=== PATIENT | male | born 1950 | race Caucasian/White ===

== ENCOUNTER 2020-01-07 16:47 | Inpatient (IN) | payer MEDICARE, OTHER ==
[~2020-01-07] VITALS: Ht 177.8 cm; Wt 83.5 kg
[2020-01-07] MEDS ORDERED: MAG HYDROX/AL HYDROX/SIMETH 30 ML UDC PO PRN (21:00)
[2020-01-07] MEDS ORDERED: BLOOD SUGAR DIAGNOSTIC 1 EACH STRIP IN ONE (21:00)
[2020-01-07] MEDS ORDERED: TEMAZEPAM 7.5 MG CAPSULE PO PRN (21:00)
[2020-01-07] MEDS ORDERED: LORAZEPAM 0.5 MG TABLET PO PRN (21:00)
[2020-01-07] MEDS ORDERED: MAGNESIUM HYDROXIDE 30 ML UDC PO PRN (21:00)
[2020-01-07] MEDS ORDERED: ACETAMINOPHEN 325 MG TABLET PO PRN (21:00)
[2020-01-07 21:28] VITALS: BP 153/88
[2020-01-07] MEDS ORDERED: PRIMIDONE (22:53)
[2020-01-07] MEDS ORDERED: METO25TA4 PO (22:53)
--- NOTE | 2020-01-07 22:58 | NUR ---
RECEIVED A 69 Y/O MALE WHO ARRIVED ON THE UNIT @ 1999. PT WAS BROUGHT BY A TRANSPORTER. PT ADMITTED ON 5150 HOLD PLACED ON 01/06/2020 @ 1715 FOR GD. PER HOLD PATIENT PRESENTS TO [facility] IN COMPANY OF A FRIEND D/T PARANOIA, DELUSIONS, NON COMPLIANT WITH MEDS, DISORIENTATION AND CONFUSION. PT ALSO APPEARS SAD, LABILE, TEARFUL, CONFUSED AND HAS NO CAREGIVER. UPON FACE TO FACE PT IS A/O X2, APPEARS DEPRESSED, FLAT AFFECT, PASSIVE, CALM AND COOPERATIVE, CONFUSED AND DISORGANIZED THOUGHTS. DENIES SI AT THIS TIME. THE 5150 WAS REVIEWED AND DOCUMENTED. PT IS DISPLAYING NO S/S OF DISTRESS AT THIS TIME, PT BREATHING IS EVEN AND UNLABORED WITH EQUAL RISE AND FALL OF THE CHEST ON ROOM AIR. PT IS REQUESTING NONDISCLOSURE OF HIS INFORMATION STATING, "I DON'T WANT YOU TO CALL ANYONE". PT SKIN ASSESSMENT DONE, MRSA DONE, BS 81MG/DL. PT REFUSED TO SIGN ADMISSION PAPERS PER PT "I'M TIRED". PT WAS OFFERED FLU AND PNEUMONIA SHOTS BUT REFUSED. PT WILL BE UNDER THE CARE OF PSYCHIATRIST DR. GRIMES AND MEDICAL DR. GALICIA. BOTH DRS HAVE BEEN NOTIFIED. MD FELTON CALLED FOR MED RECON. PT ORIENTED TO UNIT, FLOOR AND STAFF. MEDICATION RECONCILIATION DONE. PT RIGHTS BOOKLET GIVEN TO THE PT ALONG WITH ADVISEMENT. PT OFFERED FLUID AND SNACKS TOLERATED. ALL PT NEEDS MET AT THIS TIME. WILL CONTINUE TO MONITOR Q15MIN FOR SAFETY AND BEHAVIOR.
[2020-01-07 23:40] VITALS: BP 153/88
--- NOTE | 2020-01-08 06:36 | NUR ---
GPS RN CLOSING NOTE: PT IS CURRENTLY LAYING ON BED SLEEPING. SLEPT 6HR THIS SHIFT. NO S/S OF DISTRESS. NO BEHAVIORAL ISSUES THIS SHIFT. RESPIRATION EVEN AND UNLABORED WITH EQUAL RISE AND FALL OF THE CHEST ON ROOM AIR. ALL PT CARE NEEDS MET ANTICIPATED. BED IS LOCKED AND IN LOWEST POSITION, CALL SNYDER WITHIN REACH. WILL CONTINUE TO MONITOR AND ENDORSE TO AM SHIFT.
[2020-01-08 07:24] LABS: ALBUMIN 3.3 g/dL (3.4-5.0); BILIRUBIN,TOTAL 0.4 mg/dL (0.2-1.0); CALCIUM, SERUM 9.3 mg/dL (8.5-10.1); CREATININE 0.8 mg/dL (0.6-1.3); POTASSIUM 4.6 mmol/L (3.5-5.1)
[2020-01-08 08:00] VITALS: BP 139/83
[2020-01-08 08:44] LABS: CHOLESTEROL 174 mg/dL (<200); HDL CHOLESTEROL 40 mg/dL (40-60); LDL 117 mg/dL (0-99); TRIGLYCERIDES 85 mg/dL (30-150)
[2020-01-08] MEDS ORDERED: PHEN-563 PO (09:00)
[2020-01-08] MEDS ORDERED: METOPROLOL SUCCINATE 25 MG TAB.SR.24H PO SCH (09:00)
[2020-01-08] MEDS ORDERED: LATA2.5D7 LEFTEYE (09:00)
[2020-01-08] MEDS ORDERED: CARB200T PO (09:00)
[2020-01-08] MEDS ORDERED: PHEN97.22 PO ×2 (09:38→14:23)
--- NOTE | 2020-01-08 09:45 | NUR ---
RN NOTES RECEIVED A CALL FROM [facility] AUTHOR OF DARCY ARMENTA TO CLARIFY PATIENTS MEDICATION, CHACHA SAID PER RECORD PATIENT IS TAKING CARBAMAZEPINE 200 MG TABLET 3 TABLETS TID AND PHENOBARBITAL 97.2 MG TABLET 0.5 TABLET IN AM AND 1 TABLET AT BEDTIME, MEDICATIONS READ BACK AND CLARIFIED.
--- NOTE | 2020-01-08 11:05 | NUR ---
Family Contact: SW called the pts daughter, Jacqueline ([phone]), who stated that she is not involved in his care and provided the SW with the pts sister in law's contact information.
--- NOTE | 2020-01-08 11:11 | NUR ---
Initial Discharge Plan: Pt currently resides at his home alone located at [address] [place] [address]; ([phone]). Per pt, he would like to return to his home. SW will work with the pt and the MD regarding appropriate discharge planning. SW will form a safe and proper discharge.
--- NOTE | 2020-01-08 11:12 | NUR ---
Sister in Law Contact: SW called the pts sister in law, Angus ([phone]), and the mailbox was full. KENTRELL will try again later.
--- NOTE | 2020-01-08 12:32 | NUR ---
RN NOTES RECEIVED NEW ORDER FROM DISTRIBUTION LEAD PENNIE CUNNINGHAM COVERING DR CRISTOFER WOODWARD FOR CARBAMAZEPINE AND PHENOBARBITAL LEVEL , ORDER CLARIFIED AND READ BACK WITH PRACHI CASPER , NOTED AND CARRIED OUT.
[2020-01-08 12:52] LABS: CARBAMAZEPINE (TEGRETOL) 0.1 ug/ml (4-11.9)
[2020-01-08 16:00] VITALS: BP 148/85
[2020-01-08] MEDS: CARBAMAZEPINE 200 MG TABLET PO SCH ×2 (16:30→23:00)
--- NOTE | 2020-01-08 17:09 | NUR ---
RN NOTES PATIENT REFUSED TEGRETOL DESPITE OF EXPLANATION OF RISKS AND BENEFITS. HE SAID HE WANTS TO TAKE HIS BEDTIME MEDICATION.
[2020-01-08 20:54] VITALS: BP 147/76
[2020-01-08] MEDS ORDERED: risperiDONE 1 MG TABLET PO SCH (21:00)
[2020-01-08] MEDS ORDERED: RIVASTIGMINE TARTRATE 1.5 MG CAPSULE PO SCH (21:00)
[2020-01-08] MEDS ORDERED: LATANOPROST EYE DROP 0.005% 2.5 ML BOTTLE LEFTEYE SCH (22:00)
[2020-01-08] MEDS ORDERED: PHENOBARBITAL 30 MG TABLET PO SCH (22:00)
--- NOTE | 2020-01-08 23:19 | NUR ---
GPS RN NOTES: REFUSED TEGRETOL PT REFUSED TEGRETOL ORDERED. PT STATED, "I DONT USUALLY TAKE THAT. ILL ASK MY DR IN THE MORNING" EXPLAIN RISKS AND BENEFITS. PT STILL REFUSED X3. CONTINUE THE PLAN OF CARE
[2020-01-09 03:16] VITALS: BP 164/107
[2020-01-09] MEDS ORDERED: LORAZEPAM INJ 2 MG/ML VIAL IV PRN (04:00)
--- NOTE | 2020-01-09 04:20 | NUR ---
GPS RN NOTES: 0326 X RAY EQUIPMENT TESTER NOTIFIED RN PT YELLING AND SHAKING IN HIS BED. UPON ASSESSMENT PT HAVING JERK LIKE MOVEMENTS LAYING IN BED. PT AWAKE AND DISORGANIZED. PLACED PT TO THE SIDE, CLEARED THE AREA FOR ANYTHING THAT MAY INJURE THE PT, OPEN HIS AIRWAY FOR ANY RESTRICTIONS, ELEVATED THE HOB, CALLED FOR RAPID RESPONSE TEAM, PLACED PT ON OXYGEN 7 LITERS NON REBREATHER MASK, VITALS CHECKED 164/107 PULSE 100 98% O2 RESP 20, AND BLOOD SUGAR AT 100. 0328 PT JERK LIKE MOVEMENT/ AND SHAKING STOPPED. SEIZURE LASTED FOR 2 MIN. BREATHING EVEN AND UNLABORED. NO SOB. NO RESP DISTRESS. PT ASLEEP. O2 ROOM AIR 100% 0330 RAPID RESPONSE TEAM CAME AND ASSESSED PT. IV LINE INSERTED ON PTS LEFT FOREARM. PAGED PRACHI MORRIS AT 0342 REGARDING PTS CONDITION. PRACHI MORRIS CALLED BACK AT 0344. WITH ORDERS TO TRANSFER PT TO TELEMETRY UNIT MEDICAL FLOOR FOR MONITORING PT FOR BREAK THROUGH SEIZURE, PLACE PT ON SOFT RESTRAINTS DUE TO PT PULLING OUT IV, ATIVAN IV 2MG Q4 PRN NEEDED, 250 NS BOLUS X1, AND CONTINUE ALL PREVIOUS MEDICATION. CONTINUE 5150 HOLD AND PSYCH MEDS. NOTIFIED CHILD PROTECTIVE INVESTIGATOR KURTIS FOR ROOM TRANSFER AND ROOM NUMBER. PT WILL BE IN 3[facility] TELE ROOM 309 BED A. GAVE REPORT TO ASHANTI KAPOOR. 0350 PT AWAKE AND ALERT. INFORMED PT HIS TRANSFER TO THE MEDICAL FLOOR. PT AGREED AND CURRENTLY CALM AND COOPERATIVE. NO SOB. BREATHING EVEN AND UNLABORED. NO PAIN AT THIS TIME. 0354 TRANSFERED PT TO ROOM 309BED A. GAVE HOLD TO ASHANTI KAPOOR, PAPER WORK, AND BELONGINGS.
[2020-01-09] MEDS ORDERED: PHENOBARBITAL 30 MG TABLET PO SCH (09:00)
[2020-01-09] MEDS ORDERED: PHEN97.22 PO ×2 (16:54)
[2020-01-09] MEDS ORDERED: CARB200T PO (16:54)
== END 2020-01-09 04:05 | disposition home or self-care (01) | DRG 885 ==
LOC: GPS 19:14
PROVIDERS: ADMIT Psychiatry & Neurology Psychiatry; ATTEND Internal Medicine
DX: F29 Unspecified psychosis not due to a substance or known physiological condition (principal); E43 Unspecified severe protein-calorie malnutrition; F23 Brief psychotic disorder; F41.9 Anxiety disorder, unspecified; F03.90 Unspecified dementia, unspecified severity, without behavioral disturbance, psychotic disturbance, mood disturbance, and anxiety; F32.9 Major depressive disorder, single episode, unspecified; Z73.6 Limitation of activities due to disability; M62.81 Muscle weakness (generalized); E88.09 Other disorders of plasma-protein metabolism, not elsewhere classified; Z68.26 Body mass index [BMI] 26.0-26.9, adult
CPT/HCPCS: 36415; 80053-TC; 80061-TC; 80156-TC; 80184; 82962-TC; 87081-TC; J7030

== ENCOUNTER 2020-01-09 04:34 | Inpatient (IN) | payer MEDICARE, OTHER ==
[~2020-01-09] VITALS: Ht 177.8 cm; Wt 83.0 kg
[2020-01-09 04:07] VITALS: BP 136/89
[2020-01-09 04:10] VITALS: BP 136/86
--- NOTE | 2020-01-09 04:10 | NUR ---
LIDDING MACHINE OPERATORSPECIAL EDUCATION SECRETARY NOTE RECEIVED PATIENT VIA GURNEY. TRANSFERRED TO BED. A/OX2, TO NAME AND . TOLERATING ROOM AIR. RESPIRATIONS ARE EVEN AND UNLABORED. NO S/S SOB NOTED. NO C/O PAIN AT THIS TIME. EXTERNAL TELE MONITOR READS SINUS TACHY CARDIA HR 122. IN NO APPARENT DISTRESS. IV ACCESS IN LFA#20 PATENT AND SALINE LOCKED. INITIAL PHYSICAL ASSESSMENT COMPLETED AT THIS TIME. SKIN ASSESSMENT COMPLETED, SKIN INTACT. SEIZURE PRECAUTIONS APPLIED. BED IS LOW AND LOCKED, HOB ELEVATED IN SEMI FOWLERS, SIDE RIALS UP X3. CALL LIGHT WITHIN REACH. AWAITING GPS SITTER FOR PATIENT D/T ON 9210 HOLD FOR GRAVELY DISABLED DONE 01/09/20 4447. WILL CONTINUE TO MONITOR.
[~2020-01-09 04:34] MED LIST: CARB200T PO; LATA2.5D15 LEFTEYE; METO25TA4 PO; PHEN97.22 PO; PRIMIDONE
[2020-01-09] MEDS ORDERED: LORAZEPAM INJ 2 MG/ML VIAL IV PRN (05:00)
[2020-01-09] MEDS ORDERED: MAGNESIUM HYDROXIDE 30 ML UDC PO PRN (05:00)
[2020-01-09] MEDS ORDERED: ONDANSETRON HCL/PF 4 MG/2 ML VIAL IVP PRN (05:00)
[2020-01-09] MEDS ORDERED: HYDROCODONE/APAP 5/325MG TABLET PO PRN (05:00)
[2020-01-09] MEDS ORDERED: ACETAMINOPHEN 325 MG TABLET PO PRN (05:00)
[2020-01-09] MEDS ORDERED: MAG HYDROX/AL HYDROX/SIMETH 30 ML UDC PO PRN (05:00)
[2020-01-09 05:08] LABS: BASOPHILS % (AUTO) 0.3 % (0.0-2.0); EOSINOPHILS % (AUTO) 3.1 % (0.0-6.0); HEMATOCRIT 41 % (39-51); HEMOGLOBIN 13.8 g/dL (13.5-17.5); LYMPHOCYTES # (AUTO) 1.2 /CMM (0.8-4.8); LYMPHOCYTES % (AUTO) 16.1 % (20.0-44.0); MEAN CORPUSCULAR HGB CONC 34 g/dl (31.0-36.0); MEAN CORPUSCULAR VOLUME 94 fL (80-96); MONOCYTES # (AUTO) 0.5 /CMM (0.1-1.30); MONOCYTES % (AUTO) 7.5 % (2.0-12.0); NEUTROPHILS # (AUTO) 5.4 /CMM (1.8-8.9); PLATELET COUNT (AUTO) 242 /CMM (150-450); RED BLOOD CELL COUNT(AUTO) 4.36 MIL/uL (4.5-6.0); WHITE BLOOD COUNT (AUTO) 7.3 K/uL (4.3-11.0)
[2020-01-09 05:17] LABS: CALCIUM, SERUM 8.8 mg/dL (8.5-10.1); CARBON DIOXIDE 28 mmol/L (21-32); CHLORIDE 104 mmol/L (98-107); CREATININE 0.9 mg/dL (0.6-1.3); GLUCOSE 111 mg/dL (74-106); POTASSIUM 3.6 mmol/L (3.5-5.1); SODIUM SERUM 140 mmol/L (136-145); UREA NITROGEN, BLOOD 18 mg/dL (7-18)
--- NOTE | 2020-01-09 05:20 | NUR ---
RETAIL LEADER NOTE CHELSI BURRELL ENDORSED THAT PATIENT NEEDS 250ML BOLUS X1. ORDER NOTED ON DISCHARGE NOTE. CONFORMED WITH DECK WORKER MD DR. ELIZABETH IF PATIENT NEEDS IV BOLUS. TELEPHONE ORDER NO, ORDERED IVF INSTEAD. ORDER READ BACK NOTED AND CARRIED OUT. WILL CONTINUE TO MONITOR.
[2020-01-09 05:25] LABS: PHOSPHORUS 2.1 mg/dL (2.5-4.9)
[2020-01-09 05:26] LABS: ALKALINE PHOSPHATASE 95 U/L (46-116); ASPARTATE AMINOTRANSFERASE 20 U/L (15-37); BILIRUBIN,TOTAL 0.3 mg/dL (0.2-1.0)
[2020-01-09 05:27] LABS: ALANINE AMINOTRANSFERASE 31 U/L (12-78); ALBUMIN 3.4 g/dL (3.4-5.0); MAGNESIUM 2.1 mg/dL (1.8-2.4)
--- NOTE | 2020-01-09 05:38 | NUR ---
CUSTOM BOOKBINDER NOTE RECEIVED CRITICAL RESULT FROM LAB LACTIC ACID 3. REPORTED BY ELIZABETH. INFORMED DR. ELIZABETH, TELEPHONE ORDER TO CONTINUE IVF ORDERED. ORDER READ BACK, NOTED AND CARRIED OUT.
[2020-01-09] MEDS: IV NS 0.9% 1,000 ML IV PRN (05:42)
--- NOTE | 2020-01-09 06:36 | NUR ---
WIRE SETTER CLOSING NOTE PATIENT IS RESTING BED. A/OX2. REMAINS TOLERATING ROOM AIR. NO RESP DISTRESS NOTED. NO C/O PAIN NOTED. EXTERNAL TELE MONITOR READS SINUS RHYTHM HR 65.NO DISTRESS. IV ACCESS MAINTAINED IN LFA#20 RUNNING NS @75ML/HR. SEIZURE PRECAUTIONS IN PLACE. BED REMAINS LOW AND LOCKED, HOB ELEVATED IN SEMI FOWLERS, SIDE RIALS UP X3. CALL LIGHT WITHIN REACH. SITTER AT BED SIDE FOR 5150 HOLD FOR GRAVELY DISABLED DONE AT 01/09/20 1715. WILL ENDORSE TO NEXT SHIFT.
--- NOTE | 2020-01-09 07:15 | NUR ---
RN NOTES RECEIVED PATIENT IN BED RESTING COMFORTABLY IN MODERATE HIGH BACK REST. SITTER AT BEDSIDE. A/OX2. ON RA, TOLERATING WELL. NO SIGNS OF DISTRESS NOTED AT THIS TIME. ON EXTERNAL TELE MONITOR READS SINUS RHYTHM HR 70'S. IV ACCESS ON LFA#20 RUNNING NS @75ML/HR. SEIZURE PRECAUTIONS IN PLACE. BED REMAINS LOW AND LOCKED, PADDED SIDE RIALS UP X3. CALL LIGHT WITHIN REACH. WILL CONTINUE TO MONITOR.
--- NOTE | 2020-01-09 07:25 | NUR ---
RN NOTES KNUCKLE STRAP SEWER REPORTED THAT PATIENT IS HAVING EPISODE OF SEIZURE, PATIENT CHECKED, ATIVAN GIVEN, MD NOTIFIED. WILL CONTINUE TO MONITOR.
[2020-01-09 08:00] VITALS: BP 138/95
--- NOTE | 2020-01-09 08:32 | NUR ---
Initial Discharge Plan: Pt currently resides at his home alone located at [address] [place] [address]; ([phone]). Per pt, he would like to return to his home. SW will work with the pt and the MD regarding appropriate discharge planning. SW will form a safe and proper discharge.
[2020-01-09] MEDS: METOPROLOL SUCCINATE 25 MG TAB.SR.24H PO SCH (09:10)
[2020-01-09] MEDS: CARBAMAZEPINE 200 MG TABLET PO SCH ×2 (09:10→12:38)
--- NOTE | 2020-01-09 09:20 | NUR ---
RN NOTES RECEIVED A CALL FROM THE LAB, LACTIC ACID OF 7.5. MD NOTIFIED WITH NNO. WILL CONTINUE TO MONITOR.
[2020-01-09 09:54] LABS: BILIRUBIN,DIRECT 0.1 mg/dL (0.0-0.2)
[2020-01-09 12:00] VITALS: BP 126/70
[2020-01-09 15:40] LABS: CARBAMAZEPINE (TEGRETOL) 5.2 ug/ml (4-11.9)
[2020-01-09 16:00] VITALS: BP 125/73
[2020-01-09] MEDS ORDERED: PHEN97.22 PO ×2 (16:54)
[2020-01-09] MEDS ORDERED: CARB200T PO (16:54)
[2020-01-09] MEDS ORDERED: K PHOS NEUTRAL 250 MG TABLET PO ONE (17:30)
--- NOTE | 2020-01-09 18:25 | NUR ---
RN NOTES PATIENT IN BED RESTING COMFORTABLY IN MODERATE HIGH BACK REST. SITTER AT BEDSIDE. A/OX2. ON RA, TOLERATING WELL. ON EXTERNAL TELE MONITOR READS SINUS RHYTHM. IV ACCESS ON LFA#20 RUNNING NS @75ML/HR. SEIZURE PRECAUTIONS IN PLACE. BED REMAINS LOW AND LOCKED, PADDED SIDE RIALS UP X3. CALL LIGHT WITHIN REACH. WILL ENDORSE TO REGISTERED NURSE MATERNAL CHILD NURSE FOR WILFRIDO.
[2020-01-09 20:00] VITALS: BP 121/71
--- NOTE | 2020-01-09 20:00 | NUR ---
RN NOTES RECEIVED PT. SLEEPING BT AROUSABLE, SR ON TELE MONITOR HR-65, SITTER AT BEDSIDE, PT. IS CALM AND COOPERATIVE, CALL LIGHT WITHIN REACH, SIDERAILSUPX2, CONTINUE TO MONITOR
[2020-01-09] MEDS: PHENOBARBITAL 30 MG TABLET PO SCH (20:50)
[2020-01-09] MEDS: LATANOPROST EYE DROP 0.005% 2.5 ML BOTTLE LEFTEYE SCH (21:03)
[2020-01-09] MEDS ORDERED: Medication Not On Formulary EA (Phenobarbital 97.2 MG) PO SCH (22:00)
[2020-01-10] VITALS (7 sets, daily range): BP systolic 108–133; BP diastolic 63–81
[2020-01-10 06:01] LABS: BASOPHILS % (AUTO) 0.5 % (0.0-2.0); EOSINOPHILS % (AUTO) 3.5 % (0.0-6.0); HEMATOCRIT 37 % (39-51); HEMOGLOBIN 12.5 g/dL (13.5-17.5); LYMPHOCYTES # (AUTO) 2.2 /CMM (0.8-4.8); LYMPHOCYTES % (AUTO) 27.2 % (20.0-44.0); MEAN CORPUSCULAR HGB CONC 34 g/dl (31.0-36.0); MEAN CORPUSCULAR VOLUME 94 fL (80-96); MONOCYTES # (AUTO) 0.6 /CMM (0.1-1.30); MONOCYTES % (AUTO) 8.1 % (2.0-12.0); NEUTROPHILS # (AUTO) 4.8 /CMM (1.8-8.9); NEUTROPHILS % (AUTO) 60.7 % (43.0-81.0); PLATELET COUNT (AUTO) 226 /CMM (150-450); RED BLOOD CELL COUNT(AUTO) 3.91 MIL/uL (4.5-6.0)
[2020-01-10 06:11] LABS: CALCIUM, SERUM 8.6 mg/dL (8.5-10.1); CREATININE 0.7 mg/dL (0.6-1.3); PHOSPHORUS 3.4 mg/dL (2.5-4.9); POTASSIUM 3.8 mmol/L (3.5-5.1)
--- NOTE | 2020-01-10 06:35 | NUR ---
RN NOTES SLEEPING BUT AROUSABLE, NOT IN DISTRESS, DENIES PAIN, MORNING CARE RENDERED, CALL LIGHT WITHIN REACH, ORIUPX2, PT. NEEDS ATTENDED
--- NOTE | 2020-01-10 08:00 | NUR ---
COPYRIGHT MANAGER AM NOTES PATIENT IN BED RESTING COMFORTABLY IN HIGH BACK REST. WITH 1;1 SITTER AT BEDSIDE. ALERT,AWAKE AND PLEASANT. NO SOB ON RA, TOLERATING WELL. ON TELE MONITOR SINUS RHYTHM. IV ACCESS ON LFA#20 RUNNING NS @75ML/HR INFUSING WELL. WITH SEIZURE PRECAUTIONS IN PLACE. BED REMAINS LOW AND LOCKED, PADDED SIDE RIALS UP X3. CALL LIGHT WITHIN REACH.
[2020-01-10] MEDS: PHENOBARBITAL 30 MG TABLET PO SCH ×2 (09:06→21:57)
[2020-01-10] MEDS: METOPROLOL SUCCINATE 25 MG TAB.SR.24H PO SCH (09:06)
[2020-01-10] MEDS: CARBAMAZEPINE 200 MG TABLET PO SCH (09:07)
[2020-01-10] MEDS: IV NS 0.9% 1,000 ML IV PRN (10:48)
--- NOTE | 2020-01-10 19:39 | NUR ---
PT COMFORTABLY RESTING IN BED WITH 1:1 SITTER AT THE BEDSIDE. NO SEIZURE EPISODE AT THE END OF THE SHIFT.WILL CONTINUE TO MONITOR.
--- NOTE | 2020-01-10 19:58 | NUR ---
RN NOTES RECEIVED PATIENT IN BED RESTING COMFORTABLY IN MODERATE HIGH BACK REST. SITTER AT BEDSIDE. ALERT/ORIENTEDX2. ON RA, TOLERATING WELL. NO SIGNS OF ACUTE RESPIRATORY OR CARDIAC DISTRESS NOTED AT THIS TIME. ON EXTERNAL TELE MONITOR READS SINUS RHYTHM HR 70'S. IV ACCESS ON LFA#20 RUNNING NS @75ML/HR. SEIZURE PRECAUTIONS IN PLACE. ASPIRATION PRECAUTION EMPHASIZED. BED REMAINS LOW AND LOCKED, PADDED SIDE RIALS UP X3. CALL LIGHT WITHIN REACH EASY. ALL NEEDS ANTICIPATED. WILL CONTINUE TO MONITOR ACCORDINGLY.
[2020-01-10] MEDS: LATANOPROST EYE DROP 0.005% 2.5 ML BOTTLE LEFTEYE SCH (22:08)
[2020-01-11] MEDS: IV NS 0.9% 1,000 ML IV PRN (01:53)
[2020-01-11 06:12] LABS: BASOPHILS % (AUTO) 0.7 % (0.0-2.0); EOSINOPHILS % (AUTO) 4.2 % (0.0-6.0); HEMATOCRIT 37 % (39-51); HEMOGLOBIN 12.8 g/dL (13.5-17.5); LYMPHOCYTES # (AUTO) 1.2 /CMM (0.8-4.8); LYMPHOCYTES % (AUTO) 18.8 % (20.0-44.0); MEAN CORPUSCULAR HGB CONC 34 g/dl (31.0-36.0); MEAN CORPUSCULAR VOLUME 95 fL (80-96); MONOCYTES # (AUTO) 0.6 /CMM (0.1-1.30); NEUTROPHILS # (AUTO) 4.3 /CMM (1.8-8.9); NEUTROPHILS % (AUTO) 67.3 % (43.0-81.0); PLATELET COUNT (AUTO) 222 /CMM (150-450); RED BLOOD CELL COUNT(AUTO) 3.93 MIL/uL (4.5-6.0); WHITE BLOOD COUNT (AUTO) 6.4 K/uL (4.3-11.0)
--- NOTE | 2020-01-11 06:22 | NUR ---
RN NOTES ALL NEEDS ATTENDED AND MET. PATIENT IS RESTING COMFORTABLY WITH 1:1 SITTER AT THE BEDSIDE. NO SEIZURE EPISODE THROUGHOUT THE SHIFT. ABLE TO REST AND SLEEP. SAFETY MEASURES IN PLACE, ASPIRATION PRECAUTION EMPHASIZED. WILL ENDORSE TO AM NURSE FOR CONTINUITY OF CARE.
[2020-01-11 06:32] LABS: CALCIUM, SERUM 8.5 mg/dL (8.5-10.1); CREATININE 0.7 mg/dL (0.6-1.3); PHOSPHORUS 3.1 mg/dL (2.5-4.9)
[2020-01-11 08:00] VITALS: BP 131/75
--- NOTE | 2020-01-11 08:00 | NUR ---
ASSISTANT PROFESSOR SCULPTURE AM NOTES PATIENT IN BED RESTING COMFORTABLY IN HIGH BACK REST. WITH 1;1 SITTER AT BEDSIDE. ALERT,AWAKE AND PLEASANT. NO SOB ON RA, TOLERATING WELL. ON TELE MONITOR SINUS RHYTHM. IV ACCESS ON LFA#18 RUNNING NS @75ML/HR INFUSING WELL. WITH SEIZURE PRECAUTIONS IN PLACE. BED REMAINS LOW AND LOCKED, PADDED SIDE RIALS UP X3. CALL LIGHT WITHIN REACH.
[2020-01-11] MEDS: METOPROLOL SUCCINATE 25 MG TAB.SR.24H PO SCH (08:06)
[2020-01-11] MEDS: PHENOBARBITAL 30 MG TABLET PO SCH ×2 (08:06→21:41)
[2020-01-11] MEDS: CARBAMAZEPINE 200 MG TABLET PO SCH (08:06)
[2020-01-11] MEDS ORDERED: PHENOBARBITAL 30 MG TABLET PO ONE (10:00)
[2020-01-11 16:00] VITALS: BP 135/79
--- NOTE | 2020-01-11 18:06 | NUR ---
PT COMFORTABLY RESTING IN BED ALERT AND VERBALLY RESPONSIVE.AMBULATES WITH STANDBY ASSIST. WITH BRP. WITH 1:1 SITTER AT THE BEDSIDE. PT REMAINS COMPLIANT AND COOPERATIVE WITH MEDS AND TX. NO SEIZURE EPISODE AT THE END OF THE SHIFT. PT WILL CONTINUE TO MONITOR.
[2020-01-11 20:00] VITALS: BP 159/92
--- NOTE | 2020-01-11 20:11 | NUR ---
MS/TELE/RN DURING INITIAL SHIFT ROUNDING, PATIENT WAS IN BED AWAKE, ALERT, ORIENTED, COMFORTABLE, NO C/O PAIN, NO DISTRESS NOTED, SITTER AT BEDSIDE, WILL MONITOR.
[2020-01-11] MEDS: LATANOPROST EYE DROP 0.005% 2.5 ML BOTTLE LEFTEYE SCH (21:41)
--- NOTE | 2020-01-11 23:23 | NUR ---
MS/TELE/RN ENDORSED TO NEXT RN FOR CONTINUITY OF CARE.
--- NOTE | 2020-01-11 23:24 | NUR ---
RECEIVED REPORTS FROM NEY BURRELL FOR WILFRIDO. CHECKED PATIENT, CALM AND COMFORTABLE. NO S/S OF DISTRESS NOTED. NO COMPLAIN OF PAIN. WITH THE SITTER AT THE BEDSIDE.
[2020-01-12 01:58] VITALS: BP 157/83
--- NOTE | 2020-01-12 06:17 | NUR ---
MS RN CLOSING NOTES: PATIENT IN BED, AWAKE, NO S/S OF DISTRESS NOTED. NO COMPLAIN OF PAIN. RESTED THROUGHOUT THE NIGHT. WITH SITTER AT THE BEDSIDE. BED IN LOWEST AND LOCKED POSITION. PATIENT IS CALM THROUGHOUT THE NIGHT. PATIENT IS COMFORTABLE.
[2020-01-12 06:41] LABS: BASOPHILS % (AUTO) 0.7 % (0.0-2.0); EOSINOPHILS % (AUTO) 4.6 % (0.0-6.0); HEMATOCRIT 39 % (39-51); HEMOGLOBIN 13.3 g/dL (13.5-17.5); LYMPHOCYTES # (AUTO) 1.7 /CMM (0.8-4.8); LYMPHOCYTES % (AUTO) 26.4 % (20.0-44.0); MEAN CORPUSCULAR HGB CONC 34 g/dl (31.0-36.0); MEAN CORPUSCULAR VOLUME 94 fL (80-96); MONOCYTES # (AUTO) 0.8 /CMM (0.1-1.30); MONOCYTES % (AUTO) 11.6 % (2.0-12.0); NEUTROPHILS # (AUTO) 3.7 /CMM (1.8-8.9); NEUTROPHILS % (AUTO) 56.7 % (43.0-81.0); PLATELET COUNT (AUTO) 243 /CMM (150-450); RED BLOOD CELL COUNT(AUTO) 4.17 MIL/uL (4.5-6.0); WHITE BLOOD COUNT (AUTO) 6.5 K/uL (4.3-11.0)
[2020-01-12 06:59] LABS: CALCIUM, SERUM 8.8 mg/dL (8.5-10.1); CREATININE 0.6 mg/dL (0.6-1.3); POTASSIUM 3.7 mmol/L (3.5-5.1)
--- NOTE | 2020-01-12 08:00 | NUR ---
RN NOTE THE PATIENT IS RECEIVED IN BED. PATIENT IS ALERT AND ORIENTED X2. DENIES PAIN. IN ROOM AIR AND DENIES SOB. RESPIRATION REGULAR AND UNLABORED. THE PATIENT IS IN NO APPARENT DISTRESS. RFA G 22 PATENT AND SALINE LOCKED. SITTER AT THE BEDSIDE. BED LOW AND LOCKED. SIDE RAILS UP X3. WILL CONTINUE TO MONITOR.
[2020-01-12] MEDS: CARBAMAZEPINE 200 MG TABLET PO SCH (08:46)
[2020-01-12] MEDS: PHENOBARBITAL 30 MG TABLET PO SCH ×2 (08:46→21:39)
[2020-01-12] MEDS: METOPROLOL SUCCINATE 25 MG TAB.SR.24H PO SCH (08:47)
--- NOTE | 2020-01-12 13:20 | NUR ---
RN NOTE PATIENT IN STABLE CONDITION. REPORT GIVEN TO ASHANTI RODRIGUEZ.
[2020-01-12 16:00] VITALS: BP 145/80
--- NOTE | 2020-01-12 18:07 | NUR ---
RN MS CLOSING NOTES PATIENT CONTINUES IN STABLE CONDITION. RESTING COMFORTABLY IN BED, ALERT AND ORIENTED X2-3. PT IS ON RA, WITH NO ACUTE RESPIRATORY DISTRESS NOTED, BREATHING EVEN AND UNLABORED. NO S/S OF SOB. NO C/O PAIN. IV TO RFA #22 G KEPT PATENT AND INTACT, KEPT SL. SITTER AT BEDSIDE. SKIN INTACT. BED IS AT LOWEST POSITION AND LOCKED WITH SIDE RAILS UP X2 AND CALL LIGHT WITH IN REACH. WILL ENDORSE TO ONCOMING SHIFT.
--- NOTE | 2020-01-12 19:35 | NUR ---
RN OPENING NOTES PATIENT RECEIVED RESTING IN BED A/O X 3, SITTER AT BEDSIDE. STABLE ON RA WITH BREATHING EVEN AND UNLABORED. NO SIGNS OF ACUTE DISTRESS. NO COMPLAINTS OF PAIN OR DISCOMFORT AT THE MOMENT. IV LOCATED ON RFA #22 SL. SAFETY PRECAUTIONS IN PLACE WITH BED IN LOWEST POSITION, CALL LIGHT WITHIN REACH, BREAKS ON, SIDE RAILS UP. SEIZURES PRECAUTIONS IN PLACE. WILL CONTINUE TO MONITOR THROUGHOUT THE NIGHT.
[2020-01-12 20:00] VITALS: BP 149/80
[2020-01-12] MEDS: LATANOPROST EYE DROP 0.005% 2.5 ML BOTTLE LEFTEYE SCH (21:41)
--- NOTE | 2020-01-12 22:04 | NUR ---
CONTACT ERICKA (SISTER IN LAW) [phone]
[2020-01-13 06:03] LABS: BASOPHILS % (AUTO) 0.4 % (0.0-2.0); EOSINOPHILS % (AUTO) 3.7 % (0.0-6.0); HEMATOCRIT 40 % (39-51); HEMOGLOBIN 13.7 g/dL (13.5-17.5); LYMPHOCYTES # (AUTO) 2.1 /CMM (0.8-4.8); LYMPHOCYTES % (AUTO) 22.5 % (20.0-44.0); MEAN CORPUSCULAR HGB CONC 35 g/dl (31.0-36.0); MEAN CORPUSCULAR VOLUME 93 fL (80-96); MONOCYTES # (AUTO) 0.8 /CMM (0.1-1.30); MONOCYTES % (AUTO) 9.3 % (2.0-12.0); NEUTROPHILS # (AUTO) 5.9 /CMM (1.8-8.9); NEUTROPHILS % (AUTO) 64.1 % (43.0-81.0); PLATELET COUNT (AUTO) 250 /CMM (150-450); RED BLOOD CELL COUNT(AUTO) 4.27 MIL/uL (4.5-6.0); WHITE BLOOD COUNT (AUTO) 9.1 K/uL (4.3-11.0)
[2020-01-13 06:11] LABS: CALCIUM, SERUM 9.1 mg/dL (8.5-10.1); CREATININE 0.7 mg/dL (0.6-1.3); MAGNESIUM 2.2 mg/dL (1.8-2.4); PHOSPHORUS 3.3 mg/dL (2.5-4.9); POTASSIUM 4.2 mmol/L (3.5-5.1)
--- NOTE | 2020-01-13 06:42 | NUR ---
RN CLOSING NOTES PATIENT RESTING IN BED A/O X 3, SITTER AT BEDSIDE. STABLE ON RA WITH BREATHING EVEN AND UNLABORED. NO SIGNS OF ACUTE DISTRESS. NO COMPLAINTS OF PAIN OR DISCOMFORT AT THE MOMENT. IV LOCATED ON RFA #22 SL. SAFETY PRECAUTIONS IN PLACE WITH BED IN LOWEST POSITION, CALL LIGHT WITHIN REACH, BREAKS ON, SIDE RAILS UP. SEIZURES PRECAUTIONS IN PLACE. ALL NEEDS ATTENDED TO. WILL ENDORSE TO ONCOMING SHIFT ABOUT WILFRIDO.
--- NOTE | 2020-01-13 07:38 | NUR ---
MS/RN OPENING NOTE RECEIVED FROM ASSISTANT SCIENTIST NURSE. PATIENT IS STABLE CONDITION. A/O X2-3, VS SIGNS WITH IN NORMAL RANGE. NO ACUTE DISTRESS NOTED. PATIENT IS IN BED ON ROOM AIR TOLERATING WELL. PATIENT HAS R FA #22 HEPLOCK, INTACT AND PATENT. SAFETY MEASURES IN PLACE, BED LOCKED AND IN LOWEST POSITION, BED ALARM ACTIVATED, CALL LIGHT WITHIN REACH, SITTER AT BEDSIDE. WILL CONTINUE TO MONITOR AND ENSURE SAFETY.
[2020-01-13] MEDS: CARBAMAZEPINE 200 MG TABLET PO SCH (08:15)
[2020-01-13 08:18] VITALS: BP 149/79
[2020-01-13] MEDS: METOPROLOL SUCCINATE 25 MG TAB.SR.24H PO SCH (08:18)
[2020-01-13] MEDS ORDERED: PHENOBARBITAL 30 MG TABLET PO SCH ×2 (09:00)
--- NOTE | 2020-01-13 11:43 | NUR ---
MS/RN DISCHARGED PATIENT A/O X3 MEDICALLY STABLE. NO ACUTE DISTRESS NOTED. RESPIRATION EVEN, UNLABORED. DENIES PAIN. IV RFA #22 WAS REMOVED, NO BLEEDING, PRESSURE DRESSING APPLIED. DISCHARGE INSTRUCTION PROVIDED, PATIENT VERBALIZES UNDERSTANDING. PATIENT WAS TAKEN TO [facility] VIA WHEELCHAIR, ACCOMPANIED BY 2 RN AND 1 GENERAL INTERNIST. REPORT GIVEN TO GPS NURSE, CESAR.
[2020-01-14] MEDS ORDERED: ONDA4TAB5 PO (07:36)
[2020-01-14] MEDS ORDERED: ACET-868 PO (07:36)
[2020-01-14] MEDS ORDERED: MAGN400O6 PO (07:36)
[2020-01-14] MEDS ORDERED: MAG30ORA PO (07:36)
[2020-01-14] MEDS ORDERED: LORA2VIA11 IM (07:36)
[2020-01-14] MEDS ORDERED: CARB200T PO (07:36)
[2020-01-14] MEDS ORDERED: HYDR-4384 PO (07:36)
[2020-01-14] MEDS ORDERED: PHEN30TA40 PO (07:36)
== END 2020-01-13 11:30 | DRG 100 ==
LOC: TELE 04:34 → MED 01-11 20:00
PROVIDERS: ADMIT Internal Medicine; ATTEND Internal Medicine
DX: G40.909 Epilepsy, unspecified, not intractable, without status epilepticus (principal); E43 Unspecified severe protein-calorie malnutrition; F23 Brief psychotic disorder; I10 Essential (primary) hypertension; M19.90 Unspecified osteoarthritis, unspecified site; F32.9 Major depressive disorder, single episode, unspecified; F41.9 Anxiety disorder, unspecified; M62.81 Muscle weakness (generalized); Z73.6 Limitation of activities due to disability; F03.90 Unspecified dementia, unspecified severity, without behavioral disturbance, psychotic disturbance, mood disturbance, and anxiety; E88.09 Other disorders of plasma-protein metabolism, not elsewhere classified; Z68.26 Body mass index [BMI] 26.0-26.9, adult; F25.9 Schizoaffective disorder, unspecified; Z91.19 Patient's noncompliance with other medical treatment and regimen
CPT/HCPCS: 36415; 70450-TC; 80048-TC; 80053-TC; 80156-TC; 80184; 82248-TC; 83605-TC; 83735-TC; 84100-TC; 85025-TC; 87086-TC; G0378; J2060; J7030

== ENCOUNTER 2020-01-13 11:08 | Inpatient (IN) | payer MEDICARE, OTHER ==
[2020-01-13] VITALS (7 sets, daily range): BP systolic 124–154; BP diastolic 71–85
[~2020-01-13] VITALS: Ht 177.8 cm; Wt 82.1 kg
--- NOTE | 2020-01-13 11:30 | NUR ---
OBSERVATION ASSISTANT NOTE- PT ADMITTED ON 01/08 FOR 5150 GD. PT SPOUSE ABOUT ONE MONTH BEFORE AND HES BEEN LOSING WEIGHT, PARANOID AND DEPRESSED. UPON ADMISSION, PT HAD SEIZURE AND WAS TRANSFERRED TO MEDICAL FLOOR FOR STABILIZATION. PT FOUND TO HAVE BEEN NON MED COMPLIANT ON TEGRETOL AND PHENOBARBITAL. PT STABILIZED AND RETURNED FROM [facility] TO THE GPS UNIT UNDER THE CARE OF DR GRIMES. EXPLAINED AVAILABLE INFLUENZA AND PNA VACCINES. PT STATED HE DIDN'T WANT THEM. ON FACE TO FACE ASSESSMENT, PT IS ALERT ORIENTED TO PERSON PLACE TIME AND PURPOSE. PT DENIES SI HI AH VH. SKIN INTACT EXCEPT FOR NON PRURITIC ERYTHEMATOUS RASH TO UPPER LEFT BACK AREA, PHOTO TAKEN. MRSA SWAB DONE. PT W PMHX OF SEIZURE DISORDER , BPH, GLAUCOMA LEFT EYE AND PT HAS HAD WEIGHT LOSS SINCE SPOUSE . CURRENTLY 181.2 POUNDS AND 5' 10" TALL. VS- BP- 141/76, HR- 74, RR- 18, T- 98.0, SATURATION 96% RA. ACCU-CHECK DONE. BS- 127. DR ROGERS - TABLE ATTENDANT - FOR DR GRIMES NOTIFIED OF ADMISSION. ADMIT ORDERS GIVEN AND COMPLIED WITH. DR PENNINGTON INFORMED OF ADMIT AND PENDING MED RECON. STATED HE WILL ADDRESS. ORIENTED TOO UNIT. CONTRACTS FOR SAFETY. SISTER IN LAW AWARE OF ADMIT. ENCOURAGED INTERACTION AND MED COMPLIANCE.
[2020-01-13] MEDS ORDERED: BLOOD SUGAR DIAGNOSTIC 1 EACH STRIP IN ONE (12:00)
[2020-01-13] MEDS ORDERED: ACETAMINOPHEN 325 MG TABLET PO PRN (12:00)
[2020-01-13] MEDS ORDERED: MAGNESIUM HYDROXIDE 30 ML UDC PO PRN (12:00)
[2020-01-13] MEDS ORDERED: TEMAZEPAM 7.5 MG CAPSULE PO PRN (12:00)
[2020-01-13] MEDS ORDERED: MAG HYDROX/AL HYDROX/SIMETH 30 ML UDC PO PRN (12:00)
[2020-01-13] MEDS ORDERED: LORAZEPAM 0.5 MG TABLET PO PRN (12:00)
--- NOTE | 2020-01-13 12:19 | NUR ---
RN NOTE: ADMITTING ACCUCHECK 127
[2020-01-13] MEDS ORDERED: TEMAZEPAM 15 MG CAPSULE PO PRN (14:30)
[2020-01-13] MEDS ORDERED: LORAZEPAM 1 MG TABLET PO PRN (14:30)
[2020-01-14] MEDS ORDERED: PHENOBARBITAL 30 MG TABLET PO ONE (07:30)
[2020-01-14] MEDS ORDERED: CARBAMAZEPINE 200 MG TABLET PO ONE (07:30)
[2020-01-14] MEDS ORDERED: HYDR-4384 PO (07:36)
[2020-01-14] MEDS ORDERED: ONDA4TAB5 PO (07:36)
[2020-01-14] MEDS ORDERED: LORA2VIA11 IM (07:36)
[2020-01-14] MEDS ORDERED: ACET-868 PO (07:36)
[2020-01-14] MEDS ORDERED: MAGN400O6 PO (07:36)
[2020-01-14] MEDS ORDERED: PHEN30TA40 PO (07:36)
[2020-01-14] MEDS ORDERED: CARB200T PO (07:36)
[2020-01-14] MEDS ORDERED: MAG30ORA PO (07:36)
[2020-01-14 08:00] VITALS: BP 135/92
[2020-01-14 08:02] LABS: BILIRUBIN,TOTAL 0.3 mg/dL (0.2-1.0); CALCIUM, SERUM 8.9 mg/dL (8.5-10.1); CREATININE 0.8 mg/dL (0.6-1.3); POTASSIUM 4.4 mmol/L (3.5-5.1); TOTAL PROTEIN, SERUM 6.8 g/dL (6.4-8.2)
--- NOTE | 2020-01-14 09:00 | NUR ---
RN NOTED- PT IS QUIET WITHDRAWN AND ISOLATIVE. INTERACTIVE SELECTIVELY, PO INTAKE IS GOOD, MED COMPLIANT. MD NEEDS TO RECONCILE RX. ONE TIME ORDER OBTAINED FROM DR PENNINGTON FOR TEGRETOL 200 MG ONCE AND PHENOBARBITAL 90 MG ONCE.RX GIVEN. NO SEIZURE ACTIVITY NOTED.
--- NOTE | 2020-01-14 09:50 | NUR ---
Psychosocial Note: I, Marcela Plunkett MSW, attest to the patients previous psychosocial information dated on 01/08/20. Update On Events leading to Admission and Discharge Plan: Pt has returned to the geropsych unit of the hospital within a few days of his previous discharge date (01/09/20) to the medical floor of the hospital. Pt was discharged to the Medical Floor due to seizure and then the pt came back to the Geriatric Psychiatric Unit on 01/13/20. Per psychiatric hold, the pt was evaluated by the [facility] Emergency Department to assess the pt who was has presented with increased paranoia and delusions. Pt has not been medication compliant. Pt appeared to be frightened and unoriented upon arrival. Upon face to face contact, adult male presents as labile, sad, tearful, confused, disorganized, and tangential. Adult male is forgetful and unable to recall numerous details. Pt is unable to engage in viable safety plan. Upon social media project manager evaluation, pt appears to be alert and oriented x3 (time, place, and self). Pt appears to be in a euthymic mood and presents with a distressed affect. Pt states that he does not feel like he belongs in the hospital and states that "everything is made up." Pt states that he lives home alone and has been able to take care of himself. Pt states that his appetite and sleeping pattern is fair. Pt states that he has a daughter involved in his care but he states that her involvement is unwanted and has caused problems for him. Pt appears to have impaired insight and judgment and pts impulse control is poor. Pt will be discharged back to his home.
--- NOTE | 2020-01-14 10:04 | NUR ---
WOUND CARE CONSULT: PT PRESENTS WITH SLIGHT RASH TO LEFT UPPER BACK, PRESENT ON ADMISSION, UNKNOWN ETIOLOGY. RN TO DISCUSS WITH MD TODAY. PT IS AMBULATORY AND CONTINENT. WILL SEE PRN. CURRENT BYRON SCORE IS 23.
--- NOTE | 2020-01-14 11:30 | NUR ---
Family Contact: SW called the pts sister in law, Angus ([phone]), who stated that the pt will have a tax expert at home who will be able to administer his medications and food. KENTRELL stated that she will inform her when there is a discharge date.
[2020-01-14] MEDS ORDERED: ACETAMINOPHEN 325 MG TABLET PO PRN (14:00)
[2020-01-14] MEDS ORDERED: HYDROCODONE/APAP 5/325MG TABLET PO PRN (14:00)
--- NOTE | 2020-01-14 15:13 | NUR ---
Initial Discharge Plan: Pt currently resides at his home alone located at [address] [place] [address]; ([phone]). Per pt, he would like to return to his home. SW will work with the pt and the MD regarding appropriate discharge planning. SW will form a safe and proper discharge.
[2020-01-14 16:00] VITALS: BP 139/78
[2020-01-14 19:56] VITALS: BP 141/80
[2020-01-14] MEDS: PHENOBARBITAL 30 MG TABLET PO SCH (20:33)
[2020-01-14] MEDS: LATANOPROST EYE DROP 0.005% 2.5 ML BOTTLE LEFTEYE SCH (21:00)
[2020-01-15 08:00] VITALS: BP 142/89
[2020-01-15] MEDS: PHENOBARBITAL 30 MG TABLET PO SCH ×2 (09:25→20:40)
[2020-01-15] MEDS: CARBAMAZEPINE 200 MG TABLET PO SCH (09:25)
[2020-01-15] MEDS: METOPROLOL SUCCINATE 25 MG TAB.SR.24H PO SCH (09:26)
--- NOTE | 2020-01-15 12:26 | NUR ---
Group Note: SW encouraged the pt to attend group therapy on 01/15/20 on the topic of treatment goals. Pt stated that he does not understand why he was brought to the hospital. SW explained that he came in for grave disability and was not taking care of himself appropriately. Pt stated that he has been trying to take showers, eat his food, and take his medications. Pt stated that he knows it is important for him to take care of himself because he has medical conditions and does not want to end up being back in the hospital. Pts insight appears to have improved.
[2020-01-15 16:00] VITALS: BP 150/91
[2020-01-15 19:55] VITALS: BP 141/77
[2020-01-15] MEDS: risperiDONE 1 MG TABLET PO SCH (20:40)
[2020-01-15] MEDS: RIVASTIGMINE TARTRATE 1.5 MG CAPSULE PO SCH (20:40)
[2020-01-15] MEDS: LATANOPROST EYE DROP 0.005% 2.5 ML BOTTLE LEFTEYE SCH (21:03)
[2020-01-16] MEDS: CARBAMAZEPINE 200 MG TABLET PO SCH (08:18)
[2020-01-16] MEDS: risperiDONE 1 MG TABLET PO SCH ×2 (08:18→20:47)
[2020-01-16] MEDS: RIVASTIGMINE TARTRATE 1.5 MG CAPSULE PO SCH ×2 (08:18→20:47)
[2020-01-16] MEDS: PHENOBARBITAL 30 MG TABLET PO SCH ×2 (08:18→20:47)
[2020-01-16] MEDS: METOPROLOL SUCCINATE 25 MG TAB.SR.24H PO SCH (08:19)
[2020-01-16 08:30] VITALS: BP 135/81
--- NOTE | 2020-01-16 11:07 | NUR ---
GPS/RN-NOTES DR. HERNANDEZ SEEN THE PATIENT RASH ON UPPER BACK AREA WITH NNO.
--- NOTE | 2020-01-16 14:39 | NUR ---
Family Contact: SW called the pts sister in law, Angus ([phone]), and informed her that the pt is going to be discharged the following day. She stated that she lives too far to come pick the pt up but will see if anyone else can. She asked that the SW work on transportation as well.
[2020-01-16 16:07] VITALS: BP 132/84
--- NOTE | 2020-01-16 16:23 | NUR ---
Group Note: SW encouraged the pt to attend group therapy on 01/16/20 on discharge planning. Pt stated that he is aware that he is being discharged the following day and that his sister in law will be picking him up. He stated that he knows that she hired a caregiver for him since he needs assistance.
[2020-01-16 20:11] VITALS: BP 111/63
[2020-01-16] MEDS: LATANOPROST EYE DROP 0.005% 2.5 ML BOTTLE LEFTEYE SCH (21:06)
[2020-01-17 07:41] VITALS: BP 122/67
[2020-01-17] MEDS: RIVASTIGMINE TARTRATE 1.5 MG CAPSULE PO SCH (08:19)
[2020-01-17] MEDS: risperiDONE 1 MG TABLET PO SCH (08:19)
[2020-01-17] MEDS: PHENOBARBITAL 30 MG TABLET PO SCH (08:20)
[2020-01-17] MEDS: METOPROLOL SUCCINATE 25 MG TAB.SR.24H PO SCH ×2 (08:20→08:36)
[2020-01-17] MEDS: CARBAMAZEPINE 200 MG TABLET PO SCH (08:20)
--- NOTE | 2020-01-17 08:28 | NUR ---
DISCHARGE NOTE: Pt will be discharged back to his home located at [address] [place] [address], [place] [address]; ([phone]). Pt will be picked up by his sister in law, Angus ([phone]), around 11am. Pts mood is anxious with congruent affect. Pt denies visual/auditory hallucinations and denies suicidal/homicidal ideation. Pt is alert and oriented x3, is ambulatory, and appears appropriately groomed. Pt was referred to psychiatrist Dr. Stephanie Dickson located at [address] [facility] [address], [place] [address]; ; fax was sent to: ([phone]). Pt will also follow up with Hse Manager: Dr. Scott Reynoso located at [address] [facility] [address], [place] [address]; via telehealth on Monday at 3:00pm. The multidisciplinary exit care form was done, printed, signed, and given to the patient.
[2020-01-17 08:36] VITALS: BP 122/67
--- NOTE | 2020-01-17 10:13 | NUR ---
Dr. Galeas gave an order to charge nurse to D/C hold and D/C home and to follow up with psych and medical doctors. Psychiatrist provided prescriptions upon discharge. Pt. without distress, denies suicidal and homicidal. Dr. Shawn Li brim pouncer made aware of the discharge and provided prescriptions. Pt. signed the discharge papers, belongings ready and picture taken for the skin issue.
--- NOTE | 2020-01-17 11:40 | NUR ---
Pt. left the unit with belongings and escorted by staff to the lobby. Pt. was instructed on meds to continue at home and verbalizes understanding and advised to make a follow up with psych and medical doctors and agreed. Left without distress, ambulatory and on stable condition. Pt. was picked up by his sister in law Angus Lau. V/S taken: BP 137/76, NE 78, RR 18, temp 97.5 and oxygen sat 100%.
== END 2020-01-17 11:40 | disposition home or self-care (01) | DRG 885 ==
LOC: GPS 11:08
PROVIDERS: ADMIT Psychiatry & Neurology Psychiatry
DX: F29 Unspecified psychosis not due to a substance or known physiological condition (principal); E43 Unspecified severe protein-calorie malnutrition; F23 Brief psychotic disorder; F41.9 Anxiety disorder, unspecified; F03.90 Unspecified dementia, unspecified severity, without behavioral disturbance, psychotic disturbance, mood disturbance, and anxiety; G40.909 Epilepsy, unspecified, not intractable, without status epilepticus; F32.9 Major depressive disorder, single episode, unspecified; N40.0 Benign prostatic hyperplasia without lower urinary tract symptoms; Z73.6 Limitation of activities due to disability; M62.81 Muscle weakness (generalized); E88.09 Other disorders of plasma-protein metabolism, not elsewhere classified; Z68.26 Body mass index [BMI] 26.0-26.9, adult
CPT/HCPCS: 36415; 80053-TC; 82962-TC; 87081-TC